=== PATIENT | male | born 1940 | race Caucasian/White ===

== ENCOUNTER → 2017-03-14 | Outpatient (CLI) | payer OTHER, BC | END | disposition home or self-care (01) | LOC: RD 11:57 | DX: J01.00 Acute maxillary sinusitis, unspecified (principal) ==

== ENCOUNTER 2017-05-08 17:40 | Emergency (ER) | payer OTHER, BC ==
[~2017-05-08] VITALS: Ht 175.3 cm; Wt 88.9 kg
[2017-05-08 19:01] VITALS: BP 155/105
== END 2017-05-08 19:01 | disposition home or self-care (01) ==
LOC: ED 17:40
DX: M25.561 Pain in right knee (principal); J44.9 Chronic obstructive pulmonary disease, unspecified; I10 Essential (primary) hypertension
CPT/HCPCS: Q0092

== ENCOUNTER 2017-05-09 00:18 | Emergency (ER) | payer OTHER, BC ==
[~2017-05-09] VITALS: Ht 175.3 cm; Wt 90.3 kg
[2017-05-09 00:21] VITALS: Ht 175.3 cm; Wt 90.3 kg
[2017-05-09 02:34] VITALS: BP 158/95
== END 2017-05-09 02:34 | disposition home or self-care (01) ==
LOC: ED 00:18
DX: M79.651 Pain in right thigh (principal); I10 Essential (primary) hypertension; J44.9 Chronic obstructive pulmonary disease, unspecified; R10.31 Right lower quadrant pain

== ENCOUNTER → 2017-08-31 | Outpatient (CLI) | payer OTHER, BC | END | disposition home or self-care (01) | LOC: RD 15:49 | DX: Z01.818 Encounter for other preprocedural examination (principal) | CPT/HCPCS: Q0092 ==

== ENCOUNTER 2018-05-19 21:05 | Emergency (ER) | payer OTHER, BC ==
[~2018-05-19] VITALS: Ht 175.3 cm; Wt 86.2 kg
[2018-05-19 21:12] VITALS: Ht 175.3 cm; Wt 86.2 kg
[2018-05-19 22:30] VITALS: BP 166/80
== END 2018-05-19 22:30 | disposition home or self-care (01) ==
LOC: ED 21:05
DX: T15.12XA Foreign body in conjunctival sac, left eye, initial encounter (principal); T15.02XA Foreign body in cornea, left eye, initial encounter; I10 Essential (primary) hypertension; J44.9 Chronic obstructive pulmonary disease, unspecified; W45.8XXA Other foreign body or object entering through skin, initial encounter; Y93.89 Activity, other specified; Y92.89 Other specified places as the place of occurrence of the external cause; Y99.8 Other external cause status